=== PATIENT | male | born 1995 | race Hispanic/Latino ===

== ENCOUNTER 2017-10-03 15:54 | Emergency (ER) | payer OTHER ==
[2017-10-03] MEDS: IBUPROFEN 800 MG TAB PO (17:09)
== END 2017-10-03 17:23 | disposition home or self-care (01) ==
LOC: M ED 15:54
DX: S40.011A Contusion of right shoulder, initial encounter (principal); S20.211A Contusion of right front wall of thorax, initial encounter; W19.XXXA Unspecified fall, initial encounter; Y92.9 Unspecified place or not applicable; Y93.9 Activity, unspecified
CPT/HCPCS: 73030

== ENCOUNTER 2017-12-27 19:14 | Emergency (ER) | payer OTHER ==
[2017-12-27] MEDS: LIDOCAINE 2% MDV 20 ML VIAL SC (22:30)
[2017-12-27] MEDS: PERCOCET 5MG/325MG TAB PO (22:42)
[2017-12-27] MEDS: DERMABOND TOPICAL SKIN ADHESIVE TOP (23:45)
== END 2017-12-28 | disposition home or self-care (01) ==
LOC: M ED 12-28
DX: S91.311A Laceration without foreign body, right foot, initial encounter (principal); S90.411A Abrasion, right great toe, initial encounter; W22.8XXA Striking against or struck by other objects, initial encounter; Y92.018 Other place in single-family (private) house as the place of occurrence of the external cause
CPT/HCPCS: 12002

== ENCOUNTER → 2017-12-31 | Outpatient (CLI) | payer OTHER | LOC: M LRY 13:31 | DX: M47.892 Other spondylosis, cervical region (principal); M47.896 Other spondylosis, lumbar region | CPT/HCPCS: 72052 ==

== ENCOUNTER 2018-01-26 19:16 | Emergency (ER) | payer OTHER ==
[2018-01-26] MEDS: CYCLOBENZAPRINE 10 MG TAB PO (19:42)
[2018-01-26] MEDS: KETOROLAC 60 MG/2 ML VIAL (J1885) IM (19:44)
== END 2018-01-26 20:04 | disposition home or self-care (01) ==
LOC: M ED 19:16
DX: S39.012A Strain of muscle, fascia and tendon of lower back, initial encounter (principal); X50.0XXA Overexertion from strenuous movement or load, initial encounter; Y92.89 Other specified places as the place of occurrence of the external cause
CPT/HCPCS: J1885

== ENCOUNTER 2018-06-26 13:26 | Emergency (ER) | payer OTHER ==
[2018-06-26] MEDS: ACETAMINOPHEN TAB 650MG DOSE (2X325MG) PO (14:22)
[2018-06-26] MEDS: TETRACAINE 0.5% OPHTH SOLN 4ML OS (14:22)
[2018-06-26] MEDS: FLUORESCEIN OPHTH 1 MG STRIP OS (14:22)
[2018-06-26] MEDS: ERYTHROMYCIN OPHTH OINT OD (14:49)
== END 2018-06-26 14:50 | disposition home or self-care (01) ==
LOC: M ED 13:26
DX: S05.01XA Injury of conjunctiva and corneal abrasion without foreign body, right eye, initial encounter (principal)
CPT/HCPCS: 99283

== ENCOUNTER 2019-09-16 19:12 | Emergency (ER) | payer OTHER ==
[~2019-09-16] VITALS: Ht 167.6 cm; Wt 72.7 kg
[~2019-09-16 19:12] MED LIST: CYCL10TA PO; ERYTOIN8 OP; NAPR-837 PO
[2019-09-16] MEDS ORDERED: NAPR-837 PO (20:57)
[2019-09-16] MEDS ORDERED: ANEC4CRE3 TOP (20:57)
[2019-09-16] MEDS ORDERED: LIDOCAINE 4% CREAM 5GM (LMX4) TOP ONE (21:00)
[2019-09-16] MEDS ORDERED: NAPROXEN 250 MG TAB PO ONE (21:00)
[2019-09-16 21:03] VITALS: BP 132/63
--- NOTE | 2019-09-17 09:47 | REP ---
Clinical: Fall. Pain. Technique: Frontal view of the pelvis with neutral and frog lateral views of the right hip. Findings: Osseous structures, joint spaces, and surrounding soft tissues are normal. No acute fracture or dislocation. Impression: No fracture or dislocation. Electronically Signed by Aamir Charles MD 09/17/2019 09:38 A
== END 2019-09-16 21:16 | disposition home or self-care (01) ==
LOC: M ED 19:12
DX: S76.811A Strain of other specified muscles, fascia and tendons at thigh level, right thigh, initial encounter (principal); M25.551 Pain in right hip; V00.311A Fall from snowboard, initial encounter; Y92.838 Other recreation area as the place of occurrence of the external cause; Y93.23 Activity, snow (alpine) (downhill) skiing, snowboarding, sledding, tobogganing and snow tubing

== ENCOUNTER 2020-08-19 20:22 | Emergency (ER) | payer OTHER ==
[~2020-08-19] VITALS: Ht 170.2 cm; Wt 77.7 kg
[~2020-08-19 20:22] MED LIST changes: +ANEC4CRE3 TOP; +CYCL-707 PO; -CYCL10TA PO
--- OUTSIDE RECORDS SUMMARY | 2020-08-19 20:28 | CCD ---
Author Author [facility] Organization [facility] Address Unknown Phone Unavailable Support Name Relationship Address Phone GUSTABO Next Of Kin Unknown Unavailable ULISSES JUNG Next Of Kin Unknown [phone] [facility] Next Of Kin [address] [place] [address] Unavailable LINDA HENSON Next Of Kin [address] [place] [address] Tommy Oconnor Unknown Unavailable Re-disclosure Warning The records that you are about to access may contain information from federally-assisted alcohol or drug abuse programs. If such information is present, then the following federally mandated warning applies: This information has been disclosed to you from records protected by federal confidentiality rules (42 CFR part 2). The federal rules prohibit you from making any further disclosure of this information unless further disclosure is expressly permitted by the written consent of the person to whom it pertains or as otherwise permitted by 42 CFR part 2. A general authorization for the release of medical or other information is NOT sufficient for this purpose. The Federal rules restrict any use of the information to criminally investigate or prosecute any alcohol or drug abuse patient.The records that you are about to access may contain highly sensitive health information, the redisclosure of which is protected by Article 27-F of the [facility] Public Health law. If you continue you may have access to information: Regarding HIV / AIDS; Provided by facilities licensed or operated by the [facility] Office of Mental Health; or Provided by the [facility] Office for People With Developmental Disabilities. If such information is present, then the following [facility] mandated warning applies: This information has been disclosed to you from confidential records which are protected by state law. State law prohibits you from making any further disclosure of this information without the specific written consent of the person to whom it pertains, or as otherwise permitted by law. Any unauthorized further disclosure in violation of state law may result in a fine or [place] [facility] sentence or both. A general authorization for the release of medical or other information is NOT sufficient authorization for further disc losure. Family History Family Member Name Family Member Gender Family Member Status Date o f Status Description Data Source(s) Unknown Unknown Problem [facility] ([facility], ) Insurance Providers Payer name Policy type / Coverage type Policy ID Covered constitution party ID Covered constitution party's relationship to santillan Policy Santillan Plan Information [facility] ACTIVE DUTY [id number] SP [id number] U [id number] Self [id number] [facility] HUMANA - O/P [id number] 18 [id number] [facility] (2018) Health Maintenance Organization (HMO) [id number] Self [id number] [facility] (2018) Health Maintenance Organization (HMO) [id number] Self [id number] [place] (2018) Health Maintenance Organization (HMO) [id number] Self [id number] [facility] [id number] S [id number]
[2020-08-19] MEDS ORDERED: KETOROLAC 30 MG/ML 1ML VIAL IV ONE (22:15)
[2020-08-19] MEDS ORDERED: NS 1,000 ML IV ONE (22:15)
--- OUTSIDE RECORDS SUMMARY | 2020-08-19 22:32 | CCD ---
Author Author [facility] Organization [facility] Address Unknown Phone Unavailable Support Name Relationship Address Phone GUSTABO Next Of Kin Unknown Unavailable ULISSES JUNG Next Of Kin Unknown [facility] Next Of Kin [address] [place] [address] Unavailable LINDA HENSON Next Of Kin [address] [place] [address] Tommy Oconnor Unknown Unavailable Re-disclosure [...] is protected by Article 27-F of the [facility] Public Health law. If you continue you may have access to information: Regarding HIV / AIDS; Provided by facilities licensed or operated by the [facility] Office of Mental Health; or Provided by the [facility] Office for People With Developmental Disabilities. If such information is present, then the following [facility] mandated warning applies: This information has been [...] law may result in a fine or [facility] sentence or both. A general authorization for [...] relationship to santillan Policy Santillan Plan Information [facility] ACTIVE DUTY [id number] SP [id number] U [id number] Self [id number] [facility] HUMANA - O/P [id number] [id number] [facility] (2018) Health Maintenance Organization (HMO) [id number] Self [id number] [facility] (2018) Health Maintenance Organization (HMO) [id number] Self [id number] [place] (2018) Health Maintenance Organization (HMO) [id number] Self [id number] [facility] [id number] S [id number]
--- NOTE | 2020-08-19 22:37 | REPVR ---
PROCEDURE INFORMATION: Exam: XR Complete Acute Abdomen Series Exam date and time: 08/19/2020 10:28 PM Age: 24 years old Clinical indication: Abdominal pain; Acute; Additional info: Right sided abd pain TECHNIQUE: Imaging protocol: XR complete acute abdomen series, including 2 or more views of the abdomen and a single view chest. COMPARISON: No relevant prior studies available. FINDINGS: Lungs: Normal. No consolidation. Pleural space: Normal. No pneumothorax. Heart/Mediastinum: Normal. No cardiomegaly. Gastrointestinal tract: Mild gas throughout the GI tract, greatest in the colon without abnormal dilatation. No abnormal air-fluid levels. Mild stool throughout the ascending and transverse colon. Intraperitoneal space: No free air. Bones/joints: Normal. No acute fracture. Soft tissues: Normal. IMPRESSION: 1. Negative chest. 2. Negative abdomen with mild gas which is within normal limits. Electronically signed by: Hung Jolly On 08/19/2020 22:37:42 PM
[2020-08-19 23:12] LABS: BASO % 0.5 % (0.0-1.0); EOS # 0.2 10^3/uL (0.0-0.5); EOS % 2.7 % (0.0-3.0); HEMATOCRIT 44.3 % (42.0-52.0); HEMOGLOBIN 14.1 g/dl (13.5-17.5); LYMPH # 2.1 10^3/uL (1.5-5.0); LYMPH % 36.8 % (24.0-44.0); MEAN CORPUSCULAR HEMOGLOBIN 28.4 pg (27.0-33.0); MEAN CORPUSCULAR HGB CONC 31.8 g/dl (32.0-36.5); MEAN CORPUSCULAR VOLUME 89.1 fl (80.0-96.0); MONO # 0.5 10^3/uL (0.0-0.8); MONO % 8.1 % (0.0-5.0); NEUTROPHILS # 2.9 10^3/uL (1.5-8.5); NEUTROPHILS % 51.7 % (36.0-66.0); PLATELET COUNT, AUTOMATED 301 10^3/uL (150-450); RED BLOOD COUNT 4.97 10^6/uL (4.30-6.10); WHITE BLOOD COUNT 5.7 10^3/uL (4.0-10.0)
[2020-08-19 23:41] LABS: ALBUMIN 3.6 GM/DL (3.2-5.2); BILIRUBIN,DIRECT 0.1 MG/DL (0.0-0.2); BILIRUBIN,TOTAL 0.3 MG/DL (0.2-1.0)
[2020-08-20] MEDS ORDERED: SIMETHICONE 80MG CHEW TAB PO STA (00:03)
[2020-08-20] MEDS ORDERED: MACR100C43 PO (00:14)
[2020-08-20] MEDS ORDERED: SIME180C PO (00:14)
[2020-08-20] MEDS ORDERED: NITROFURANTOIN (MACROBID) 100 MG CAP PO ONE (00:15)
[2020-08-20 00:23] VITALS: BP 120/68
== END 2020-08-20 00:26 | disposition home or self-care (01) ==
LOC: M ED 20:22
DX: R10.9 Unspecified abdominal pain (principal); R14.1 Gas pain; R82.998 Other abnormal findings in urine; F17.200 Nicotine dependence, unspecified, uncomplicated
CPT/HCPCS: 74021; 80047; 80076; 81001; 83690; 85025; 87086; 96374; 99284; J1885

== ENCOUNTER 2020-08-30 14:58 | Emergency (ER) | payer OTHER ==
[~2020-08-30] VITALS: Ht 167.6 cm; Wt 78.7 kg
[~2020-08-30 14:58] MED LIST changes: +MACR100C43 PO; +SIME180C PO
--- OUTSIDE RECORDS SUMMARY | 2020-08-30 15:04 | CCD ---
Author Author [facility] Organization [facility] Address Unknown Phone Unavailable Support Name Relationship Address Phone GUSTABO Next Of Kin Unknown Unavailable ULISSES JUNG Next Of Kin Unknown [phone] [facility] Next Of Kin [address] [place] [address] Unavailable LINDA HENSON Next Of Kin [address] [place] [address] Tommy Oconnor Unknown Unavailable Re-disclosure [...] is protected by Article 27-F of the [facility] Public Health law. If you continue you may have access to information: Regarding HIV / AIDS; Provided by facilities licensed or operated by the [facility] Office of Mental Health; or Provided by the [facility] Office for People With Developmental Disabilities. If such information is present, then the following [facility] mandated warning applies: This information has been [...] law may result in a fine or intermediate sentence or both. A general authorization for the release of medical or other information is NOT sufficient authorization for further disc losure. Family History Family Member Name Family Member Gender Family Member Status Date o f Status Description Data Source(s) Unknown Unknown Problem [facility] ([facility], ) Insurance Providers Payer name Policy type / Coverage type Policy ID Covered democrat ID Covered democrat's relationship to santillan Policy Santillan Plan Information [facility] ACTIVE DUTY [id number] SP [id number] U [id number] Self [id number] [facility] HUMANA - O/P [id number] 18 [id number] [facility] (2018) Health Maintenance Organization (HMO) [id number] Self [id number] [facility] (2018) Health Maintenance Organization (HMO) [id number] Self [id number] [place] (2018) Health Maintenance Organization (HMO) [id number] Self [id number] [facility] [id number] S [id number]
[2020-08-30] MEDS ORDERED: ISOVUE-370 76% 100ML VIAL As Ordered ONE (16:04)
[2020-08-30 16:14] LABS: BASO % 0.5 % (0.0-1.0); EOS # 0.1 10^3/uL (0.0-0.5); EOS % 1.9 % (0.0-3.0); HEMATOCRIT 48.1 % (42.0-52.0); HEMOGLOBIN 15.6 g/dl (13.5-17.5); LYMPH # 1.7 10^3/uL (1.5-5.0); LYMPH % 28.1 % (24.0-44.0); MEAN CORPUSCULAR HEMOGLOBIN 28.3 pg (27.0-33.0); MEAN CORPUSCULAR HGB CONC 32.4 g/dl (32.0-36.5); MEAN CORPUSCULAR VOLUME 87.3 fl (80.0-96.0); MONO # 0.4 10^3/uL (0.0-0.8); MONO % 7.3 % (0.0-5.0); NEUTROPHILS # 3.7 10^3/uL (1.5-8.5); NEUTROPHILS % 61.9 % (36.0-66.0); PLATELET COUNT, AUTOMATED 329 10^3/uL (150-450); RED BLOOD COUNT 5.51 10^6/uL (4.30-6.10); WHITE BLOOD COUNT 5.9 10^3/uL (4.0-10.0)
--- OUTSIDE RECORDS SUMMARY | 2020-08-30 16:22 | CCD ---
Author Author [facility] Organization [facility] Address Unknown Phone Unavailable Support Name Relationship Address Phone GUSTABO Next Of Kin Unknown Unavailable ULISSES JUNG Next Of Kin Unknown [phone] [facility] Next Of Kin [address] [place] [address] Unavailable LINDA HENSON Next Of Kin [address] [place] [address] Tommy Oconnor Unknown Unavailable Re-disclosure [...] is protected by Article 27-F of the [facility] Public Health law. If you continue you may have access to information: Regarding HIV / AIDS; Provided by facilities licensed or operated by the [facility] Office of Mental Health; or Provided by the [facility] Office for People With Developmental Disabilities. If such information is present, then the following [facility] mandated warning applies: This information has been [...] law may result in a fine or shelter sentence or both. A general authorization for the release of medical or other information is NOT sufficient authorization for further disc losure. Family History Family Member Name Family Member Gender Family Member Status Date o f Status Description Data Source(s) Unknown Unknown Problem [facility] ([facility], ) Insurance Providers Payer name Policy type / Coverage type Policy ID Covered republican ID Covered republican's relationship to santillan Policy Santillan Plan Information [facility] ACTIVE DUTY [id number] SP [id number] U [id number] Self [id number] [facility] HUMANA - O/P [id number] [id number] [facility] (2018) Health Maintenance Organization (HMO) [id number] Self [id number] [facility] (2018) Health Maintenance Organization (HMO) [id number] Self [id number] [place] (2018) Health Maintenance Organization (HMO) [id number] Self [id number] [facility] [id number] S [id number]
[2020-08-30 16:31] LABS: ALBUMIN 4.2 GM/DL (3.2-5.2); ALT/SGPT 44 U/L (12-78); BILIRUBIN,DIRECT < 0.1 MG/DL (0.0-0.2); BILIRUBIN,TOTAL 0.3 MG/DL (0.2-1.0); LIPASE 129 U/L (73-393); TOTAL PROTEIN 7.8 GM/DL (6.4-8.2)
--- NOTE | 2020-08-30 16:32 | REP ---
INDICATION: epigastric/periumbilic pain. COMPARISON: None TECHNIQUE: 100 cc Isovue 370 intravenously without oral bowel preparatory contrast administration. FINDINGS: The lung bases are clear. The liver, gallbladder, spleen, pancreas, adrenal glands, and kidneys are within normal limits. The abdominal aorta and para-regions are within normal limits. Limited evaluation of the bowel loops and the mesenteries show no gross abnormalities. The appendix is well visualized and is within normal limits. There is no free fluid or free air. There is no evidence of a mass or adenopathy. Bone window technique throughout the examination shows a mild grade 1 anterior wedge-shaped compression deformity involving T12 the age of which cannot be determined by this exam. IMPRESSION: There is no evidence of acute disease. CT findings as described above. <Electronically signed by Fortunato Macias > 08/30/20 [id number]
[2020-08-30] MEDS ORDERED: PANT40TA29 PO (17:13)
[2020-08-30 17:26] VITALS: BP 136/81
== END 2020-08-30 17:32 | disposition home or self-care (01) ==
LOC: M ED 14:58
DX: R10.13 Epigastric pain (principal); Z79.899 Other long term (current) drug therapy
CPT/HCPCS: 36415; 74177; 80047; 80076; 83690; 85025; 99284; Q9967

== ENCOUNTER 2020-12-04 16:47 | Emergency (ER) | payer OTHER ==
[~2020-12-04] VITALS: Ht 167.6 cm; Wt 75.5 kg
[~2020-12-04 16:47] MED LIST changes: +PANT40TA29 PO; -SIME180C PO; +SIME180C25 PO
--- NOTE | 2020-12-04 21:05 | REPVR ---
PROCEDURE INFORMATION: Exam: US Scrotum Exam date and time: 12/04/2020 8:48 PM Age: 25 years old Clinical indication: Other: Blood in semen; Additional info: Blood in sperm TECHNIQUE: Imaging protocol: Real-time ultrasound of the scrotum and contents with color Doppler and image documentation. COMPARISON: CT ABD/PEL W/IV CONTRAST ONLY 08/30/2020 4:09 PM FINDINGS: Right testicle: Unremarkable. No mass. No torsion. Normal vascular flow. Left testicle: Unremarkable. No mass. No torsion. Normal vascular flow. Epididymides: 3 mm cyst in the right epididymal head. Right epididymis is otherwise unremarkable. Left epididymis is unremarkable. Scrotum: Small scrotal pearls are noted in the right hemiscrotum measuring 3 mm and 2 mm. There is a left varicocele with increasing flow during Valsalva. IMPRESSION: 1. Left varicocele. 2. Small right hydrocele with small benign scrotal pearls. 3. No testicular torsion or mass. Electronically signed by: Jesus Phillip On 12/04/2020 21:05:43 PM
[2020-12-05] MEDS ORDERED: DOXYCYCLINE HYCLATE 100MG TABLET PO ONE
[2020-12-05] MEDS ORDERED: LIDOCAINE 1% SDV 5ML VIAL DILUENT ONE
[2020-12-05] MEDS ORDERED: cefTRIAXone 500MG VIAL (J0696 PER 250MG) IM ONE
[2020-12-05] MEDS ORDERED: DOXY100C37 PO (00:02)
[2020-12-05 00:47] VITALS: BP 115/77
== END 2020-12-05 00:49 | disposition home or self-care (01) ==
LOC: M ED 16:47
DX: N41.0 Acute prostatitis (principal); F17.290 Nicotine dependence, other tobacco product, uncomplicated
CPT/HCPCS: 76870; 81001; 87086; 87490; 87590; 93976; 96372; 99283; J0696